=== PATIENT | female | born 1950 | race Caucasian/White ===

== ENCOUNTER → 2019-12-12 | Outpatient (REF) | payer MEDICARE | LOC: M LAB REF 12-11 11:51 | PROVIDERS: ATTEND Dermatology | DX: L57.8 Other skin changes due to chronic exposure to nonionizing radiation (principal) | CPT/HCPCS: 11102; 17000; 88305; G0463 ==

== ENCOUNTER → 2020-12-25 | Outpatient (REF) | payer MEDICARE | LOC: M LAB REF 19:24 | PROVIDERS: ATTEND Dermatology | DX: D48.9 Neoplasm of uncertain behavior, unspecified (principal); L57.0 Actinic keratosis | CPT/HCPCS: 11102; 17000; 17003; 17110; 88305; G0463 ==

== ENCOUNTER → 2021-09-07 | Outpatient (REF) | payer MEDICARE | LOC: M SFHCDERM 14:11 | PROVIDERS: ATTEND Nurse Practitioner Family | DX: D18.09 Hemangioma of other sites (principal); L57.0 Actinic keratosis; L57.8 Other skin changes due to chronic exposure to nonionizing radiation | CPT/HCPCS: 11102; 88305; G0463 ==